=== PATIENT | female | born 1975 | race Caucasian/White ===

== ENCOUNTER 2018-09-17 14:24 | Emergency (ER) | payer MEDICAID, SELFPAY ==
[2018-09-17 14:28] VITALS: BP 120/78; PULSE 100; RESP 16; TEMP 37.1; O2SAT 98; BMI 19.1
--- NOTE | 2018-09-17 14:47 | HMH.EDGENADL ---
ED Disposition Clinical Impression: Migraine Disposition: Home, Self-Care Condition on Discharge: Good Instructions: DI for Migraine Prescriptions: Butalb/Acetaminophen/Caffeine [Fioricet 50-300-40 mg Capsule] 1 each PO TID 2 Days #6 cap Referrals: Monico Grant MD [Primary Care Provider] - Forms: Work/School Release Time of Disposition: 17:05 - Critical Care Critical Care Time: No Attestation: On 09/17/18, the high probability of a clinically significant, sudden or life threatening deterioration of the following system(s) required my full and direct attention, intervention and personal management. The time I documented below is in addition to time spent performing reported procedures but includes the following listed in this critical care notation. Medical Decision Making - Medical Records Medical records reviewed: Yes: I reviewed the patient's medical records. - Eduardo Inquiry Pt receiving controlled substance: No Eduardo was queried for this patient: No ( manual process . no info could be obtained) Reference #:: [id number] Vital Signs: 09/17/18 14:28 09/17/18 15:19 09/17/18 16:30 Temperature 98.7 F Temperature Source Oral Pulse Rate [Left Radial] 100 H 88 100 H Respiratory Rate 16 16 Blood Pressure [Right Arm] 120/78 105/60 L 118/66 Blood Pressure Mean [Right Arm] 92 75 83 Blood Pressure Source [Right Arm] Automatic Cuff Automatic Cuff Blood Pressure Position [Right Arm] Sitting Sitting 02 Sat by Pulse Oximetry 98 98 97 Oxygen Delivery Method Room Air - Lab Data Lab results reviewed: Yes: I reviewed the patient's lab results. Lab Results 09/17/18 14:38: WBC 9.3, RBC 3.85 L, Hgb 13.6, Hct 37.4, MCV 97.1, MCH 35.3 H, MCHC 36.3 H, RDW 12.3, Plt Count 229, MPV 7.1 L, Neut % (Auto) 54.1, Lymph % (Auto) 38.2, Stark % (Auto) 5.7, Eos % (Auto) 1.5, Baso % (Auto) 0.5, Neut # (Auto) 5.0, Lymph # (Auto) 3.6, Stark # (Auto) 0.5, Eos # (Auto) 0.1, Baso # (Auto) 0.1 09/17/18 14:38: Sodium 142, Potassium 3.4 L, Chloride 105, Carbon Dioxide 27, Anion Gap 13.4, BUN 12 D, Creatinine 0.75, Estimated Creat Clear 84, Estimated GFR 84, Est GFR ( Amer) 102, Glucose 110 H, Calcium 9.0, Total Bilirubin 0.4, AST 22, ALT 22, Alkaline Phosphatase 78, Total Protein 6.9, Albumin 3.8, Globulin 3.1, Albumin/Globulin Ratio 1.2 09/17/18 15:35: Urine Color Yellow, Urine Appearance Clear, Urine pH 6.0, Ur Specific [place] <= 1.005, Urine Protein Negative, Urine Glucose (UA) Negative, Urine Ketones Negative, Urine Blood Trace-l, Urine Nitrate Negative, Urine Bilirubin Negative, Urine Urobilinogen 0.2, Ur Leukocyte Esterase Negative, Urine WBC Occasional, Ur Squamous Epith Cells Occasional, Amorphous Sediment Trace, Urine Bacteria Trace Result diagrams: 09/17/18 14:38 09/17/18 14:38 Orders (Tests/Meds): ED MEDICATIONS Discontinued Medications Generic Name Dose Route Start Last Admin Trade Name Freq PRN Reason Stop Dose Admin Acetaminophen/Butalbital/Caffeine 2 each 09/17/18 14:37 09/17/18 14:45 Fiorcet Tablet PO 09/17/18 14:38 2 each ONCE ONE Administration Sodium Chloride 1,000 mls @ 999 mls/hr 09/17/18 14:45 09/17/18 15:40 Sod Chlor 0.9% 1000ml Bag IV 09/17/18 16:45 999 mls/hr .Q1H1M ROCCO Administration General Adult HPI - General Chief complaint: Headache Stated complaint: Migraine Time Seen by Provider: 09/17/18 14:47 Mode of Arrival: Ambulatory Source of Information: Patient Limitations: No Limitations Description of Symptoms (Recalled from ER Triage Doc. by RN): to ed per pvt car with c/o migraine headache starting yesterday hx of same states this headache is worse than normal migraine +photophobia, +phonophobia, +nausea, +vomiting. pt also c/o intermittent episodes of rt kidney spasms starting yesterday. cpta none - History of Present Illness HPI narrative: severe headache x 28 hours, history of same. Coming of UTI, took cipro for E. Coli quiros sensitive - Relat
[2018-09-17 15:01] LABS: Basophils # 0.1 K/mm3 (0-0.2); Basophils % 0.5 % (0.1-2.0); Eosinophils # 0.1 K/mm3 (0.0-0.4); Eosinophils % 1.5 % (0.1-12.0); Hematocrit 37.4 % (37.0-47.0); Hemoglobin 13.6 g/dL (12.2-16.2); Lymphocytes # 3.6 K/mm3 (0.7-4.5); Lymphocytes % 38.2 % (10-50); Mean Corpuscular HGB Conc 36.3 g/dL (31.8-35.4); Mean Corpuscular Hemoglobin 35.3 pg (27.0-31.2); Mean Corpuscular Volume 97.1 fl (81-99); Mean Platelet Volume 7.1 fl (7.4-10.4); Monocytes # 0.5 K/mm3 (0.1-1.0); Monocytes % 5.7 % (1.7-9.3); Neutrophils % 54.1 % (37.0-80.0); Platelet Count 229 K/mm3 (142-424); Red Blood Count 3.85 M/mm3 (4.20-5.40); Red Cell Distribution Width 12.3 % (11.5-17.5); White Blood Count 9.3 K/mm3 (4.8-10.8)
[2018-09-17 15:12] LABS: Alanine Aminotransferase 22 U/L (12-78); Albumin Level 3.8 gm/dL (3.4-5.0); Albumin/Globulin Ratio 1.2 (1.1-1.8); Alkaline Phosphatase 78 U/L (46-116); Anion Gap 13.4 mEq/L (5-15); Aspartate Amino Transferase 22 U/L (15-37); Bilirubin,Total 0.4 mg/dL (0.2-1.0); Blood Urea Nitrogen 12 mg/dL (7-18); Carbon Dioxide 27 mmol/L (21.0-32.0); Chloride 105 mmol/L (98-107); Creatinine Clearance Estimated 84 mL/min (50-200); Creatinine,Serum 0.75 mg/dL (0.55-1.02); Estimated Glomerular Filt Rate 84 ml/min (>60); GFR (African American) 102 ML/MIN (>60); Globulin 3.1 gm/dl (1.3-3.2); Glucose 110 mg/dL (74-106); Potassium 3.4 mmoL/L (3.5-5.1); Sodium 142 mmol/L (136-145); Total Protein,Serum 6.9 gm/dL (6.4-8.2)
[2018-09-17 15:19] VITALS: BP 105/60; PULSE 88; RESP 16; O2SAT 98
--- NOTE | 2018-09-17 15:22 | PC.NURSE ---
family at bedside
[2018-09-17 15:43] LABS: Microscopic, Urine URINE MICROSCOPIC (MICROSCOPIC)
[2018-09-17 15:44] LABS: Appearance,Urine CLEAR (Clear); Bilirubin,Urine Negative (Negative); Blood, Urine TRACE-L (Negative); Color,Urine YELLOW (Yellow); Glucose,Urine (UA) Negative (Negative); Ketones,Urine Negative (Negative); Leukocyte Esterase,Urine Negative (Negative); Nitrate,Urine Negative (Negative); Protein,Urine Negative (Negative); Specific Gravity, Urine <= 1.005 (1.005-1.030); Urobilinogen,Urine 0.2 EU/dl (0.2)
--- NOTE | 2018-09-17 15:45 | PC.NURSE ---
pt c/o numbness to rt hand just starting after IV restarted
[2018-09-17 15:53] LABS: Amorphous Sediment,Urine Trace /lpf; Bacteria,Urine Trace /lpf; Squamous Epithelial Cell,Urine Occasional #/hpf (0-5); WBC,Urine Occasional #/hpf (0-3)
--- NOTE | 2018-09-17 15:55 | PC.NURSE ---
pt continues to c/o rt hand numbness. IV fluids stopped
[2018-09-17 16:30] VITALS: BP 118/66; PULSE 100; O2SAT 97
[2018-09-17 17:20] VITALS: BP 134/76; PULSE 73; RESP 16; TEMP 36.9; O2SAT 97
== END 2018-09-17 17:20 | disposition home or self-care (01) ==
PROVIDERS: Emergency Provider Emergency Medicine; PCP Emergency Medicine
DX: G43.909 Migraine, unspecified, not intractable, without status migrainosus (principal); F17.210 Nicotine dependence, cigarettes, uncomplicated; Z88.0 Allergy status to penicillin
CPT/HCPCS: 80053; 81001; 85025; 96365; 99283

== ENCOUNTER 2018-09-24 09:11 | Emergency (ER) | payer MEDICAID, SELFPAY ==
[2018-09-24 09:12] VITALS: BP 122/98; PULSE 112; RESP 16; TEMP 36.2; O2SAT 99; BMI 19.0
--- NOTE | 2018-09-24 09:33 | HMH.EDUTC ---
[facility] [place] Disposition Clinical Impression: Headache UTI (urinary tract infection) Qualifiers: Urinary tract infection type: site unspecified Hematuria presence: without hematuria Qualified Code(s): N39.0 - Urinary tract infection, site not specified Disposition: Home, Self-Care Condition on Discharge: Good Instructions: Urinary Tract Infection, Tension Headache Additional Instructions: It is ok for her to return to work today. Drink plenty of fluids. Take ibuprofen or tylenol for your headaches. Follow up with your regular doctor. GO TO THE ER FOR ANY WORSENING SYMPTOMS. Referrals: Provider,Referral, [Primary Care Provider] - Forms: Work/School Release Time of Disposition: 09:46 Medical Decision Making - Medical Records Medical records reviewed: Yes: I reviewed the patient's medical records. - Eduardo Inquiry Pt receiving controlled substance: No Eduardo was queried for this patient: No Vital Signs: 09/24/18 09:12 09/24/18 09:50 Temperature 97.2 F L 97.2 F L Temperature Source Oral Oral Pulse Rate 112 H Pulse Rate [Left Radial] 112 H Respiratory Rate 16 16 Blood Pressure 122/98 H Blood Pressure [Right Arm] 122/98 H Blood Pressure Mean [Right Arm] 106 Blood Pressure Source Manual Cuff/ Auscultation Blood Pressure Source [Right Arm] Manual Cuff/ Auscultation Blood Pressure Position Sitting Blood Pressure Position [Right Arm] Sitting 02 Sat by Pulse Oximetry 99 Oxygen Delivery Method Room Air Room Air - Lab Data Lab results reviewed: Yes: I reviewed the patient's lab results. Lab Results 09/24/18 09:33: Urine Color Dark yellow, Urine Appearance Slightly cloudy, Urine pH 5.5, Ur Specific [place] 1.025, Urine Protein 3+, Urine Glucose (UA) Negative, Urine Ketones Negative, Urine Blood 2+, Urine Nitrate Negative, Urine Bilirubin Negative, Urine Urobilinogen 0.2, Ur Leukocyte Esterase Trace [facility] [place] HPI - General Stated complaint: Possible UTI Time Seen by Provider: 09/24/18 09:33 Mode of Arrival: Ambulatory Source of Information: Patient Limitations: No Limitations Description of Symptoms (Recalled from Triage Doc. by RN): Patient here for note to be able to return to work related to recent kidney stones and UTI. Tried to return to work today and her boss would not let her. HEENT Symptoms (Recalled from RN notes): No Resp Symptoms (Recalled from RN notes): No Skin Symptoms (Recalled from RN notes): No MS Symptoms (Recalled from RN notes): No Functional Status (Recalled from RN notes): wnl - Related Data Home Medications Medication Instructions Recorded Confirmed Baclofen [Lioresal 10mg tablet] 10 mg PO HS PRN 08/30/18 09/17/18 Gabapentin [Neurontin 800mg Tab] 800 mg PO TID 08/30/18 09/17/18 Hydrocodone/Acetaminophen [[place] 1 tab PO TID PRN 08/30/18 09/17/18 10-325 Tablet] Previous Rx's Medication Instructions Recorded Ketorolac Tromethamine [Toradol 10 mg PO Q6H 5 Days #20 tab 09/24/18 10mg tablet] Metoclopramide HCl [Reglan 5mg 5 mg PO TID 5 Days #15 tab 09/24/18 Tablet] Allergies Allergy/AdvReac Type Severity Reaction Status Date / Time cinnamon Allergy Unknown Verified 09/17/18 14:42 latex Allergy Unknown Verified 09/17/18 14:42 Aspirin Allergy Unknown Uncoded 09/17/18 14:42 From Penicillin G Sodium Allergy Unknown Uncoded 09/17/18 14:42 Ibuprofen Allergy Unknown Uncoded 09/17/18 14:42 PCN (penicillin) Allergy Unknown Uncoded 09/17/18 14:42 - Worker's Comp Is this a Worker's Comp case?: No [facility] History - Hepatitis A Screen Drug use history?: No High risk sexual behaviors?: No History of sexually transmitted infection?: No Currently employed?: No Childcare worker?: No Do you have indoor plumbing?: Yes Do you have electricity?: Yes Attestation statement:: This patient has been screened for Hepatitis A risk factors. I have reviewed the patient's past medical history: Yes Medical History: Denies:: Joanne
[2018-09-24 09:39] LABS: Apearance,Urine Slightly Cloudy (Clear); Color,Urine Dark Yellow (Yellow); PH,Urine 5.5 (5.0-8.5)
[2018-09-24 09:40] LABS: Glucose,Urine (UA) Negative (Negative); Ketones,Urine Negative (Negative); Protein,Urine 3+ (Negative); Specific Gravity, Urine 1.025 (1.005-1.030)
[2018-09-24 09:41] LABS: Bilirubin,Urine Negative (Negative); Blood, Urine 2+ (Negative)
[2018-09-24 09:42] LABS: UTC Leukocyte Esterase,Urine Trace (Negative); UTC Nitrate,Urine Negative (Negative); Urobilinogen,Urine 0.2 EU/dl (0.2)
[2018-09-24 09:50] VITALS: BP 122/98; PULSE 112; RESP 16; TEMP 36.2; O2SAT 99
== END 2018-09-24 09:53 | disposition home or self-care (01) ==
PROVIDERS: Emergency Provider Nurse Practitioner Family
DX: N30.00 Acute cystitis without hematuria (principal); F17.210 Nicotine dependence, cigarettes, uncomplicated
CPT/HCPCS: 81003; 99201

== ENCOUNTER 2018-09-24 10:03 | Emergency (ER) | payer MEDICAID, SELFPAY ==
[2018-09-24 10:11] VITALS: BP 123/88; PULSE 118; RESP 17; TEMP 36.7; O2SAT 98; BMI 19.0
--- NOTE | 2018-09-24 10:18 | HMH.EDGENADL ---
ED Disposition Clinical Impression: Headache Disposition: Home, Self-Care Condition on Discharge: Good Instructions: DI for Headache Prescriptions: Metoclopramide HCl [Reglan 5mg Tablet] 5 mg PO TID 5 Days #15 tab Ketorolac Tromethamine [Toradol 10mg tablet] 10 mg PO Q6H 5 Days #20 tab Referrals: Mary Lou Camacho APRN [Primary Care Provider] - Time of Disposition: 10:36 - Critical Care Critical Care Time: No Attestation: On , the high probability of a clinically significant, sudden or life threatening deterioration of the following system(s) required my full and direct attention, intervention and personal management. The time I documented below is in addition to time spent performing reported procedures but includes the following listed in this critical care notation. Medical Decision Making - Medical Records Medical records reviewed: Yes: I reviewed the patient's medical records. - Eduardo Inquiry Pt receiving controlled substance: No Eduardo was queried for this patient: No Vital Signs: 09/24/18 10:11 Temperature 98.1 F Temperature Source Oral Pulse Rate [Right Brachial] 118 H Respiratory Rate 17 Blood Pressure [Right Arm] 123/88 Blood Pressure Mean [Right Arm] 99 Blood Pressure Source [Right Arm] Automatic Cuff Blood Pressure Position [Right Arm] Sitting 02 Sat by Pulse Oximetry 98 Oxygen Delivery Method Room Air - Lab Data Lab results reviewed: Yes: I reviewed the patient's lab results. Orders (Tests/Meds): ED MEDICATIONS Discontinued Medications Generic Name Dose Route Start Last Admin Trade Name Freq PRN Reason Stop Dose Admin Ketorolac Tromethamine 60 mg 09/24/18 10:34 Toradol 60mg/2ml Vial IM 09/24/18 10:35 ONCE ONE Metoclopramide HCl 5 mg 09/24/18 10:34 Reglan 10mg/2ml Vial IM 09/24/18 10:35 ONCE ONE General Adult HPI - General Stated complaint: migraine Time Seen by Provider: 09/24/18 10:18 Mode of Arrival: Ambulatory Source of Information: Patient Limitations: No Limitations - History of Present Illness HPI narrative: was here [facility] to get cleared back to work. developed a headache, stress related, out of fioiricet. Can;t write her for those - Related Data Home Medications Medication Instructions Recorded Confirmed Baclofen [Lioresal 10mg tablet] 10 mg PO HS PRN 08/30/18 09/17/18 Gabapentin [Neurontin 800mg Tab] 800 mg PO TID 08/30/18 09/17/18 Hydrocodone/Acetaminophen [[place] 1 tab PO TID PRN 08/30/18 09/17/18 10-325 Tablet] Previous Rx's Medication Instructions Recorded Ketorolac Tromethamine [Toradol 10 mg PO Q6H 5 Days #20 tab 09/24/18 10mg tablet] Metoclopramide HCl [Reglan 5mg 5 mg PO TID 5 Days #15 tab 09/24/18 Tablet] Allergies Allergy/AdvReac Type Severity Reaction Status Date / Time cinnamon Allergy Unknown Verified 09/17/18 14:42 latex Allergy Unknown Verified 09/17/18 14:42 Aspirin Allergy Unknown Uncoded 09/17/18 14:42 From Penicillin G Sodium Allergy Unknown Uncoded 09/17/18 14:42 Ibuprofen Allergy Unknown Uncoded 09/17/18 14:42 PCN (penicillin) Allergy Unknown Uncoded 09/17/18 14:[address] [facility] History - Hepatitis A Screen Attestation statement:: This patient has been screened for Hepatitis A risk factors. I have reviewed the patient's past medical history: Yes Medical History: Denies:: Diabetes Mellitus Type 1, Diabetes Mellitus Type 2 Laterality Cases: Bilateral: Tonsillectomy Fractures: Yes - Social History Smoking Status: Current every day smoker Tobacco Type: cigarettes, smokeless tobacco # Packs/Day (cigarettes): 1 Alcohol Intake: never Occupational Status: employed Housing: house Household Members: family ROS Obtained: Yes All systems reviewed & no additional complaints - Constitutional Constitutional: Denies chills, Denies fever(s) - Eyes Eyes: Denies change in vision - Cardiovascular Cardiovascular: Denies chest pain - Respiratory Res
[2018-09-24 10:54] VITALS: BP 119/78; PULSE 86; O2SAT 97
[2018-09-24 11:04] LABS: Microscopic, Urine URINE MICROSCOPIC (MICROSCOPIC)
[2018-09-24 11:15] LABS: Appearance,Urine CLOUDY (Clear); Bilirubin,Urine Negative (Negative); Blood, Urine 1+ (Negative); Color,Urine YELLOW (Yellow); Glucose,Urine (UA) Negative (Negative); Ketones,Urine Negative (Negative); Leukocyte Esterase,Urine TRACE (Negative); Nitrate,Urine Negative (Negative); PH,Urine 5.5 (5.0-8.5); Protein,Urine Negative (Negative); Specific Gravity, Urine 1.025 (1.005-1.030); Urobilinogen,Urine 0.2 EU/dl (0.2)
[2018-09-24 11:24] VITALS: BP 124/87; PULSE 71; RESP 18; TEMP 36.7; O2SAT 97
[2018-09-24 11:24] LABS: Squamous Epithelial Cell,Urine TNTC #/hpf (0-5)
[2018-09-24 11:25] LABS: Bacteria,Urine 1+ /lpf
== END 2018-09-24 11:31 | disposition home or self-care (01) ==
PROVIDERS: Emergency Provider Emergency Medicine; PCP Nurse Practitioner Family
DX: R51 Headache (principal); F17.210 Nicotine dependence, cigarettes, uncomplicated
CPT/HCPCS: 81001; 96372; 99282